=== PATIENT | female | born 1960 | race Two or more races ===

== ENCOUNTER → 2019-07-15 | Emergency (ER) | payer MEDICAID ==
--- NOTE | 2019-07-15 18:07 | NUR ---
ENTRY FOR 173: PATIENT ALERT AND ORIENTED X3, ABLE TO ANSWER QUESTIONS NOW. PATIENT DENIES HX OF HEMODIALYSIS. PATIENT'S VITALS STABLE. NOTED TO HAVE MILD BLEEDING NOTED ON THE GUMS, DR. BEE AT BEDSIDE FOR RE-ASSESSMENT, STATED OK TO CONTINUE TPA.
--- NOTE | 2019-07-15 18:07 | NUR ---
ENTRY FOR: 07/15/19 AT 1555 [id number], PER EMS HOUSE VICE PRESIDENT OF INSTRUCTION FOUND HER SITTING IN THE LIVING TOOM AND NOT TALKING, AMBULATORY ON SCENE, BS 240, LAST WELL KNOWN 1520. PATIENT ALTERED, EYES OPEN AT TIMES, BUT NON-VERBAL AT THIS TIME. PATIENT ATTEMPTED TO OPEN MOUTH, BUT UNABLE TO ARTICULATE ANY WORDS. PATIENT UNABLE TO FOLLOW COMMANDS AT THIS TIME. DR. BEE AT BEDSIDE FOR EVAL. IV LINE ESTABLISHED. BLOOD DRAWN AND SENT TO LAB.
--- NOTE | 2019-07-15 18:07 | NUR ---
ENTRY FOR 1749: PATIENT'S SON PADMINI CAME TO HOSPITAL. VERIFIED PATIENT'S MEDICAL HISTORY, ASKED FOR PATIENT'S DATE OF . CALLED ADMITTING TO VERIFY PATIENT'S INFORMATION WITH SON. DR. BEE AT BEDSIDE, MADE AWARE, SHANTEL FOR IRISH TRANSLATION. PROVIDED UPDATE TO SON RE: PATIENT'S CONDITION.
--- NOTE | 2019-07-15 18:07 | NUR ---
ENTRY FOR 1649: TPA BOLUS OF 6.5ML GIVEN ON RIGHT HAND G18 IV, TPA DRIP STARTED @ 58.5ML/HR. TOTAL BAG VOLUME IS 58.5ML.
--- NOTE | 2019-07-15 18:07 | NUR ---
ENTRY FOR 1651: PATIENT STARTED TALKING IN [place], "NO PUEDE HABLAR" UNABLE TO ELABORATE MORE WHEN ASKED. STILL UNABLE TO ANSWER QUESTIONS AT THIS TIME.
--- NOTE | 2019-07-15 18:07 | NUR ---
ENTRY FOR 07/15/19 AT 1617: STROKE ASSESSMENT COMPLETED. NIHSS SCORE IS 20
--- NOTE | 2019-07-15 18:07 | NUR ---
ENTRY FOR 07/15/19 AT 1603: TELE NEUROLOGIST CONTACTED, DR. DIGGS.
--- NOTE | 2019-07-15 18:07 | NUR ---
ENTRY FOR 07/15/19 AT 1601: CODE STROKE ACTIVATION
--- NOTE | 2019-07-15 18:15 | NUR ---
REPORT GIVEN TO ART CCT RN FOR [facility].
--- NOTE | 2019-07-15 18:20 | NUR ---
HAD A MEETING WITH AIDE MUNOZ, DR. BEE EXPLAINED THE SITUATION, THE PATIENT'S DIAGNOSIS, WHAT TREATMENT WAS GIVEN, INCLUDING THE TPA. PEOPLE PRESENT IN THE ROOM WAS: MADALYN ZAVALETA NURSING MACHINE TENDER, SHANTEL CLEMENTE TRANSLATED IN DANISH, CHARGE NURSE KORY VASQUEZ RN. AIDE [place] WAS GIVEN EXPLANATION TO WHAT THE RISKS AND BENEFITS OF THE TPA MEDICATION. AIDE UNDERSTANDS AND AGREED TO SIGN THE TPA CONSENT.
--- NOTE | 2019-07-15 18:30 | NUR ---
PATIENT TRANSFERRED TO [facility]. NO DISTRESS NOTED. REPORT GIVEN TO KERLINE CRAWFORD. PATIENT WILL GO TO ROOM 2223.
--- NOTE | 2019-07-15 19:20 | NUR ---
1601 VITAL SIGNS: T 99.3 HR 123 BPS: 144 BPD: 86 RESP: 18 O2 SAT: 95
--- NOTE | 2019-07-15 19:21 | NUR ---
1614 VITAL SIGNS: HR: 120 BPS: 146 BPD: 98 RESP: 20 O2 SAT: 96 1635 VITAL SIGNS: HR: 115 BPS: 141 BPD: 84 RESP: 20 O2 SAT: 94 1648 VITAL SIGNS: HR: 112 BPS: 138 BPD: 84 RESP: 18 O2 SAT: 94
--- NOTE | 2019-07-15 19:23 | NUR ---
1700 VITAL SIGNS: HR: 111 BPS: 140 BPD: 79 RESP: 20 O2 SAT: 97 1715 VITAL SIGNS: HR: 108 BPS: 131 BPD: 76 RESP: 218 O2 SAT: 97 1735 VITAL SIGNS: HR: 109 BPS: 139 BPD: 86 RESP: 20 O2 SAT: 94 1800 VITAL SIGNS: HR: 112 BPS: 144 BPD: 85 RESP: 18 O2 SAT: 94
--- NOTE | 2019-07-15 19:38 | NUR ---
CALLED TELE STROKE LINE TO HAVE NEUROLOGIST REPAGED TO INITIATE TRANSFER
--- NOTE | 2019-07-15 19:38 | NUR ---
SPOKE TO ART AT THE TRANSPORT TEAM. ETA 15-20 MIN DEPENDING ON TRAFFIC
== END | disposition short-term general hospital (02) ==
LOC: ER 18:25
DX: I63.9 Cerebral infarction, unspecified (principal); E11.9 Type 2 diabetes mellitus without complications; I10 Essential (primary) hypertension; Z90.710 Acquired absence of both cervix and uterus
CPT/HCPCS: 70450-TC; 70496-TC; 70498-TC; 71045-TC